=== PATIENT | male | born 2000 | race Two or more races ===

== ENCOUNTER 2021-07-12 23:25 | Emergency (ER) | payer OTHER ==
[~2021-07-12] VITALS: Ht 167.6 cm; Wt 72.5 kg
[2021-07-13] MEDS ORDERED: IBUPROFEN 600 MG TABLET PO ONE
[2021-07-13 03:09] VITALS: BP 140/85
== END 2021-07-13 03:22 | disposition home or self-care (01) ==
LOC: EMS 23:26
DX: S90.02XA Contusion of left ankle, initial encounter (principal); S80.12XA Contusion of left lower leg, initial encounter; X58.XXXA Exposure to other specified factors, initial encounter; Y93.89 Activity, other specified; Y92.89 Other specified places as the place of occurrence of the external cause; Y99.8 Other external cause status
CPT/HCPCS: 99284; 73590-TC; 73610-TC; Z7502; Z7610